=== PATIENT | female | born 1990 | race African-American/Black ===

== ENCOUNTER 2023-12-25 17:12 | Emergency (ER) | payer MEDICARE, OTHER ==
[~2023-12-25] VITALS: Ht 162.6 cm; Wt 112.9 kg
[~2023-12-25 17:12] MED LIST: CEPH-570 PO; IBUP-1955 PO; POLY17PO4 PO
[2023-12-25] MEDS ORDERED: NAPR-1009 PO (18:24)
[2023-12-25] MEDS ORDERED: AMOX500C2 PO (18:24)
[2023-12-25] MEDS ORDERED: ACET-2605 PO (18:24)
[2023-12-25] MEDS ORDERED: NAPROXEN 250 MG TABLET ONE (18:38)
[2023-12-25] MEDS ORDERED: ACETAMINOPHEN ES 500 MG TABLET ONE (18:38)
[2023-12-25] MEDS: NAPROXEN 250 MG TABLET PO ONE (18:48)
[2023-12-25] MEDS: ACETAMINOPHEN ES 500 MG TABLET PO ONE (18:48)
[2023-12-25 19:25] VITALS: BP 108/62; TEMP 98; O2SAT 99
[2023-12-25] MEDS: PENICILLIN V POTASSIUM 500 MG TABLET PO ONE (19:25)
== END 2023-12-25 19:26 | disposition home or self-care (01) ==
LOC: ER 17:20
DX: K08.89 Other specified disorders of teeth and supporting structures (principal); R51.9 Headache, unspecified; M25.561 Pain in right knee; Z79.899 Other long term (current) drug therapy; Z60.2 Problems related to living alone; Z59.00 Homelessness unspecified

== ENCOUNTER 2024-03-12 17:00 | Emergency (ER) | payer MEDICARE, OTHER ==
[~2024-03-12] VITALS: Ht 162.6 cm; Wt 181.0 kg
[~2024-03-12 17:00] MED LIST changes: +ACET-2605 PO; +AMOX500C2 PO; +NAPR-1009 PO
[2024-03-12 17:22] VITALS: BP 131/75; TEMP 98.1
[2024-03-12 19:57] LABS: APPEARANCE,URINE SLIGHTLY CLOUDY (CLEAR); BILIRUBIN,URINE NEGATIVE (NEGATIVE); BLOOD, URINE 1+ Ery/uL (NEGATIVE); COLOR,URINE YELLOW (YELLOW); KETONES,URINE NEGATIVE (NEGATIVE); LEUKOCYTE ESTERASE ,URINE NEGATIVE (NEGATIVE); NITRITE, URINE NEGATIVE (NEGATIVE); PROTEIN,URINE NEGATIVE (NEGATIVE); UGLUCOSE NEGATIVE (NEGATIVE); UROBILINOGEN,URINE 0.2 EU/dL (0.2)
[2024-03-12 20:09] LABS: BACTERIA,URINE Moderate /HPF (None Seen); SQUAMOUS EPITHELIAL CELL,UR Many /HPF (None Seen)
[2024-03-12 20:11] LABS: ADD URINE CULTURE YES; WBC,URINE 0-2 /HPF (0-3); YEAST,URINE Few /HPF (None Seen)
[2024-03-12] MEDS ORDERED: PROM118S5 PO (21:08)
[2024-03-12] MEDS ORDERED: AZIT250T PO (21:08)
[2024-03-12 21:55] VITALS: O2SAT 96
== END 2024-03-12 21:56 | disposition home or self-care (01) ==
LOC: ER 17:00
DX: R05.9 Cough, unspecified (principal); R06.02 Shortness of breath; R09.81 Nasal congestion; R10.9 Unspecified abdominal pain; R21 Rash and other nonspecific skin eruption; R30.9 Painful micturition, unspecified; Z59.01 Sheltered homelessness; Z60.2 Problems related to living alone
CPT/HCPCS: 71045-TC; 81001; 82962-TC; 84703-TC

== ENCOUNTER 2024-11-27 09:13 | Emergency (ER) | payer MEDICARE, OTHER ==
[~2024-11-27] VITALS: Ht 162.6 cm; Wt 104.3 kg
[~2024-11-27 09:13] MED LIST changes: +AZIT250T PO; +PROM118S5 PO
[2024-11-27] MEDS ORDERED: AZIT250T13 PO (09:41)
[2024-11-27 10:03] VITALS: BP 138/78; TEMP 98.5; O2SAT 97
== END 2024-11-27 10:04 | disposition home or self-care (01) ==
LOC: ER 09:13
DX: J32.9 Chronic sinusitis, unspecified (principal); J45.909 Unspecified asthma, uncomplicated; Z60.2 Problems related to living alone